=== PATIENT | male | born 1980 | race Caucasian/White ===

== ENCOUNTER 2020-09-28 12:45 | Outpatient (RCR) | payer OTHER, SELFPAY | END 2020-10-13 23:59 | LOC: NS 12:45 | PROVIDERS: PCP Pediatrics; Visit Provider Family Medicine | DX: Z71.3 Dietary counseling and surveillance (principal); E66.9 Obesity, unspecified; Z68.37 Body mass index [BMI] 37.0-37.9, adult | CPT/HCPCS: 97802 ==